=== PATIENT | female | born 1955 | race Caucasian/White ===

== ENCOUNTER 2020-01-23 08:22 | Emergency (ER) | payer OTHER, SELFPAY ==
--- NOTE | 2020-01-23 08:29 | ED.GENADULT ---
HPI - General Adult General Chief complaint: Skin/Abscess/Foreign Body Stated complaint: sores on neck/head Time Seen by Provider: 01/23/20 08:43 Source: patient Mode of arrival: ambulatory Limitations: no limitations History of Present Illness HPI narrative: 64-year-old female patient presents to the [facility] with complaints of a rash to her neck and head area for the past 3 to 4 days. Patient states that she was in her garage Tuesday working in her garage and states she is concerned that she might of gotten bitten by something. Patient states that later on that night she had pain to her head and neck area that woke her up out of her sleep. Patient states the next day she noticed rash to the right side of her neck and the right side of her head. Patient states it is painful, tingly and does itch at times. There is also another spot in the middle of her neck that she states that is been very itchy and she has been scratching a lot and thinks she might of infected it. Patient denies any fevers. Denies any vision changes. Denies any muscle weakness but states she has been feeling a little achy. Patient denies any nausea, vomiting or diarrhea. Patient states she did use Benadryl for her symptoms but states that she is noticed that it has increased her blood pressure. Related Data Home Medications Medication Instructions Recorded Confirmed ergocalciferol (vitamin D2) 1,250 mcg PO WEEKLY 01/23/20 01/23/20 [Vitamin D2] levothyroxine [Synthroid] 150 mcg PO DAILY 01/23/20 01/23/20 Allergies Allergy/AdvReac Type Severity Reaction Status Date / Time No Known Allergies Allergy Verified 01/23/20 08:43 Review of Systems Review of Systems: Narrative: CONSTITUTIONAL: Denies fever, chills, or sweats. EYES: Denies visual changes, redness, or discharge. ENT: Denies rhinorrhea, congestion, sore throat, or otalgia. CARDIOVASCULAR: Denies chest pain, palpitations, or edema. RESPIRATORY: Denies cough or dyspnea. GASTROINTESTINAL: Denies abdominal pain, nausea, vomiting, or diarrhea. GENITOURINARY: Denies dysuria or hematuria. SKIN: Positive painful rash and itchiness to the neck and head x3 to 4 days MUSCULOSKELETAL: Denies back pain, joint pain, or myalgia. NEUROLOGIC: Denies headache, numbness, or weakness. PSYCHIATRIC: Denies anxiety or depression. [facility] Past Medical History Medical History (Updated 01/23/20 @ 08:56 by GRETA Lam) Hypothyroidism Seasonal allergies Comments At the time of my signature I agree with nursing past medical history, surgical, social, and family history. There is no relevant family history pertinent to the presenting complaint. Exam Narrative: Exam Narrative: GENERAL: Well-appearing, well-nourished, and in no acute distress. HEAD: Normocephalic, atraumatic. EYES: PERRLA and EOMI. ENT: Nares clear, no rhinorrhea or epistaxis. Mucous membranes moist. NECK: Supple. No lymphadenopathy CHEST: Clear to auscultation. No respiratory distress. HEART: Regular rate and rhythm. No murmur heard. Normal peripheral pulses. ABDOMEN: Soft, nontender, nondistended, normal active bowel sounds. EXTREMITIES: Normal range of motion. No edema. SKIN: Patient has vascular rash noted to the right side of her neck, behind her right ear as well as various spots on the right side of her scalp. There is also a round scabbed area to the middle of the anterior neck with a surrounding erythemic bull's-eye noted. It is slightly swollen. The middle is crusted over and there is no obvious drainage noted at this time. Patient states the area is itchy. NEURO: No focal deficits. Alert and oriented x3. Course Vital Signs Vital signs: Vital Signs Temperature 37.1 C 01/23/20 08:31 Pulse Rate 78 01/23/20 08:31 Respiratory Rate 16 01/23/20 08:31 Blood Pressure 145/90 H 01/23/20 08:31 Pulse Oximetry 98 01/23/20 08:31 Temperature 37.1 C 01/23/20 08:31 Pulse Rate 78 01/23/20 08:31 Respiratory R
[2020-01-23 08:31] VITALS: BP 145/90; PULSE 78; RESP 16; TEMP 37.1; O2SAT 98
== END 2020-01-23 09:03 | disposition home or self-care (01) ==
PROVIDERS: Emergency Provider Nurse Practitioner Family
DX: B02.9 Zoster without complications (principal); E03.9 Hypothyroidism, unspecified; R03.0 Elevated blood-pressure reading, without diagnosis of hypertension
CPT/HCPCS: 99213; G0463

== ENCOUNTER 2023-10-03 18:12 | Emergency (ER) | payer MEDICARE, SELFPAY ==
[2023-10-03 18:56] VITALS: BP 138/61; PULSE 75; RESP 20; TEMP 37.3; O2SAT 95
--- NOTE | 2023-10-03 20:16 | ED.GENADULT ---
HPI - General Adult General Chief complaint: Upper Respiratory Infection Stated complaint: Fever/Congestion/Cough Time Seen by Provider: 10/03/23 20:00 Source: patient, RN notes reviewed and old records reviewed Mode of arrival: ambulatory Limitations: no limitations History of Present Illness HPI narrative: 68 year old female who presents to [facility] care with complaints of feeling slightly ill last week but since yesterday has had fevers, cough and congestion and feeling tired. Patient reports that she tried Mucinex without any relief in her symptoms and has taken some Tylenol for her complaints. Patient reports highest temperature noted 100.8. Patient reports that she just returned from trip to [place]. MD complaint: cough congstion fever and fatigue Onset (ago): day(s) (2) Severity: moderate Quality: aching Treatments prior to arrival: other (Mucinex and Tylenol) Related Data Home Medications Medication Instructions Recorded Confirmed ergocalciferol (vitamin D2) 1,250 1,250 mcg PO WEEKLY 01/23/20 01/23/20 mcg (50,000 unit) capsule (Vitamin D2) levothyroxine 150 mcg tablet 150 mcg PO DAILY 01/23/20 01/23/20 (Synthroid) Allergies Allergy/AdvReac Type Severity Reaction Status Date / Time No Known Allergies Allergy Verified 01/23/20 08:43 Review of Systems Review of Systems: CONSTITUTIONAL: Reports malaise, chills, sweats, or fever. EYES: Denies visual changes, redness, or discharge. ENT: Reports rhinorrhea, congestion, sinus pain,no otalgia and no sore throat. CARDIOVASCULAR: Denies chest pain, palpitations, or edema. RESPIRATORY: Reports cough.? Denies dyspnea. GASTROINTESTINAL: Denies abdominal pain, nausea, vomiting, diarrhea SKIN: Denies rash or itching. MUSCULOSKELETAL:Reports myalgia. NEUROLOGIC: Denies headache. All systems reviewed & are unremarkable except as noted in HPI and below PMFSH Past Medical History Medical History (Updated 10/04/23 @ 00:14 by Jon Winston) Hypothyroidism Seasonal allergies Surgical History Surgical History (Updated 10/05/23 @ 09:47 by Camryn Caro NP) H/O: section History of bilateral knee replacement Social History Social History (Updated 10/05/23 @ 09:47 by Camryn Caro NP) Smoking status: Never smoker Alcohol intake: current Alcohol use details: rare Substance use type: does not use Living arrangements: with family Gender identity (if verbalized by the patient): Female Comments At time of signature, agree with nursing past medical, surgical, social and family history. There is no relevant family history pertinent to the presenting complaint Exam Narrative: GENERAL: Well-appearing, well-nourished, and in no acute distress. HEAD: Normocephalic EYES: PERRLA, conjunctivae clear ENT: Nares clear, turbinates edematous and erythematous, clear discharge. Mucous membranes moist. TM pearly [place]adwick with dull light reflex bilaterally; no tragal tenderness. Oropharynx erythematous without lesions. Tonsils not enlarged and without exudate, no drooling, no hoarseness, no trismus, uvula midline.some post nasal drainage NECK: Supple. No lymphadenopathy CHEST: Clear to auscultation, breath sounds equal. No wheezing, rhonchi, rales, or stridor. No respiratory distress, speaks in full sentences.cough noted, SAO2 95% on room air HEART: Regular rate and rhythm. No murmur heard. SKIN: Warm, dry, no rash. NEURO: Alert and oriented x3. PSYCH: Normal mood and affect Course Course Emergency Course: Patient is aware of diagnosis, understands and agrees to treatment plan.? Anticipatory guidance given.? Patient agrees to follow-up as directed and is aware of reasons to seek care at the emergency department. Portions of this record may have been created with voice recognition software Level of Care: Express Care Visit Vital Signs Vital signs: Vital Signs Temperature 37.3 C 10/03/23 18:56
== END 2023-10-03 20:28 | disposition home or self-care (01) ==
PROVIDERS: Emergency Provider Registered Nurse; PCP Family Medicine
DX: J10.1 Influenza due to other identified influenza virus with other respiratory manifestations (principal); Z20.822 Contact with and (suspected) exposure to COVID-19; E03.9 Hypothyroidism, unspecified; Z96.653 Presence of artificial knee joint, bilateral
CPT/HCPCS: 87426; 87804; 99213; G0463

== ENCOUNTER 2024-08-08 19:23 | Emergency (ER) | payer MEDICARE, SELFPAY ==
[2024-08-08 19:30] VITALS: BP 140/86; PULSE 146; RESP 24; TEMP 37; O2SAT 97
--- NOTE | 2024-08-08 19:40 | ECG_ITS ---
Test Date: 2024-08-08 19:36:00 Measurements Intervals [place] Rate: 145 P: 0 [place]: 0 QRS: 46 QRSD: 107 T: 264 QT: 268 QTc: 417 Interpretive Statements ATRIAL FIBRILLATION WITH RAPID VENTRICULAR RESPONSE ST DEVIATION AND MODERATE T-WAVE ABNORMALITY, CONSIDER LATERAL ISCHEMIA [-0.1+ mV T WAVE IN I/aVL/V5/V6] ST DEVIATION AND MODERATE T-WAVE ABNORMALITY, CONSIDER INFERIOR ISCHEMIA [-0.1+ mV T WAVE IN II/aVF] INTERPRETATION BASED ON A DEFAULT AGE OF 40 YEARS No previous ECG available for comparison Electronically Signed On 08-09-2024 15:52:19 GENERAL SUPERINTENDENT by Radhames Moon M.D.
--- NOTE | 2024-08-08 19:44 | ED_ITS ---
HPI - SOB/Dyspnea General Stated Complaint: chest pain/sob/pulse irratic Time Seen by Provider: 08/08/24 19:34 Source: patient Mode of arrival: ambulatory Limitations: no limitations History of Present Illness HPI Narrative: 69 year old female presents with concern for 3 day history of shortness of breath and erratic heart rate. She reports shortness of breath is worse with activity. She reports chest tightness. She denies any cardiac history. Denies any cough or recent upper respiratory infection MD elicited complaint: shortness of breath Related Data Home Medications ?Medication ?Instructions ?Recorded ?Confirmed ?Last Taken ?Type ergocalciferol (vitamin D2) 1,250 1,250 mcg PO WEEKLY 01/23/20 01/23/20 Unknown History mcg (50,000 unit) capsule (Vitamin D2) levothyroxine 150 mcg tablet 150 mcg PO DAILY 01/23/20 01/23/20 Unknown History (Synthroid) Allergies Allergy/AdvReac Type Severity Reaction Status Date / Time No Known Allergies Allergy Verified 08/08/24 19:47 Review of Systems Review of Systems: CONSTITUTIONAL: Denies malaise, chills, sweats, or fever. ENT: Denies rhinorrhea, congestion, sinus pain, otalgia or sore throat. CARDIOVASCULAR: Denies chest pain or edema. Reports erratic heart rate and chest tightness RESPIRATORY: Denies cough. Reports dyspnea. MUSCULOSKELETAL: Denies myalgia. All systems reviewed & are unremarkable except as noted in HPI and below PMFSH Past Medical History Medical History (Updated 08/08/24 @ 19:50 by Gisel Matthew NP) Hypothyroidism Seasonal allergies Surgical History Surgical History (Updated 10/05/23 @ 09:47 by Camryn Caro NP) History of bilateral knee replacement H/O: section Social History Social History (Updated 10/05/23 @ 09:47 by Camryn Caro NP) Smoking status: Never smoker Alcohol intake: current Alcohol use details: rare Substance use type: does not use Living arrangements: with family Gender identity (if verbalized by the patient): Female Comments At time of signature, agree with nursing past medical, surgical, social and family history. There is no relevant family history pertinent to the presenting complaint Exam Narrative: GENERAL: Nontoxic-appearing HEAD: Normocephalic EYES: PERRLA, sclera clear ENT: Nares clear. Mucous membranes moist. NECK: Supple. CHEST: No respiratory distress. Clear to auscultation. Conversational dyspnea HEART: Irregular rate and rhythm. No murmur heard. Normal peripheral pulses. SKIN: Warm, dry, no visible rash. NEURO: Alert and oriented x3. PSYCH: Normal mood and affect Course Course Emergency Course: Patient is aware of, understands and agrees to reasons to be seen in the emergency room and be transferred via EMS. He Portions of this record may have been created with voice recognition software Level of Care: Express Care Visit Vital Signs Vital signs: Reviewed. Transfer Transfered to: [facility] Transportation: ALS Transfer rationale: AFib with RVR, new onset MDM - SOB/Dyspnea MDM Narrative Medical decision making narrative: Patient is nontoxic appearing and in no acute distress ECG Data EKG #1: ECG completion date: 08/08/24 ECG completion time: 19:36 Prior ECG tracings: not available for review Interpretation: AFib with RVR, Rate 145, S-T deviation and moderate T-wave abnormality, QRS 107 EKG Interpretation: tachycardia and atrial fibrillation Critical Care Time Critical Care Time Critical Care Time: No Discharge Plan Discharge Clinical Impression: Atrial fibrillation with rapid ventricular response Patient Disposition: Acute Care Hospital Condition: Guarded Prognosis Patient Language: Mohawk Prescriptions: No Action levothyroxine [Synthroid] 150 mcg Tablet 150 mcg PO DAILY ergocalciferol (vitamin D2) [Vitamin D2] 1,250 mcg (50,000 unit) Capsule 1,250 mcg PO WEEKLY acyclovir 800 mg tablet 800 mg PO Q4H 7 Days Qty: 42 0RF Rx Instructions: while awake; give 5 doses in 24 hours doxycycline hyclate 100 mg capsule 100 mg PO BID 28 Days Qty: 56 0RF benzonatate 200 mg capsule 200 mg PO TID PRN (Reason: cough) Qty: 14 0RF methylprednisolone [Medrol (Abraham)] 4 mg tablets,dose pack 4 mg PO QAM Qty: 21 0RF Follow-up/Referrals: Harms,Gray Walker M.D. [Primary Care Provider] - Time of Disposition: 19:50
== END 2024-08-08 19:48 | disposition short-term general hospital (02) ==
PROVIDERS: Emergency Provider Nurse Practitioner; PCP Family Medicine
DX: I48.91 Unspecified atrial fibrillation (principal); E03.9 Hypothyroidism, unspecified
CPT/HCPCS: 93005; 99215; G0463